=== PATIENT | female | born 1945 | race Caucasian/White ===

== ENCOUNTER → 2017-12-02 08:06 | Outpatient (CLI) | payer MEDICARE, BC | END | disposition home or self-care (01) | LOC: D.US 11-29 08:30 | DX: R10.9 Unspecified abdominal pain (principal) ==

== ENCOUNTER → 2018-01-22 08:57 | Outpatient (CLI) | payer MEDICARE, BC | END | disposition home or self-care (01) | LOC: D.CT 08:57 | DX: R19.7 Diarrhea, unspecified (principal) ==

== ENCOUNTER → 2018-07-10 12:28 | Outpatient (CLI) | payer MEDICARE, BC | END | disposition home or self-care (01) | LOC: D.NM 12:28 | DX: R10.9 Unspecified abdominal pain (principal) ==

== ENCOUNTER → 2018-07-14 08:16 | Outpatient (CLI) | payer MEDICARE, BC ==
[2018-07-14 09:23] LABS: ALBUMIN 3.6 g/dL (3.4-5.0); BILIRUBIN - DIRECT 0.09 mg/dL (0.00-0.30); BILIRUBIN - INDIRECT 0.29 mg/dL (0.00-1.00); BILIRUBIN - TOTAL 0.38 mg/dL (0.2-1.3); PROTEIN - SERUM 7.3 g/dL (6.4-8.2)
[2018-07-15 09:17] LABS: HEPATITIS C ANTIBODY <0.1 (0.0-0.9)
== END | disposition home or self-care (01) ==
LOC: D.US 08:16
PROVIDERS: Internal Medicine Gastroenterology
DX: K76.0 Fatty (change of) liver, not elsewhere classified (principal); R10.9 Unspecified abdominal pain

== ENCOUNTER → 2018-07-18 08:27 | Outpatient (CLI) | payer MEDICARE, BC | END | disposition home or self-care (01) | LOC: D.CT 08:27 | DX: R10.9 Unspecified abdominal pain (principal) ==

== ENCOUNTER 2018-08-11 06:17 | Day surgery (SDC) | payer MEDICARE, BC ==
[2018-08-08 09:04] LABS: HEMATOCRIT 37.5 % (36.0-48.0); HEMOGLOBIN 12.4 g/dL (12-16); MCH 31.6 pg (26.0-34.0); MCHC 33.1 g/dL (31.0-37.0); MCV 95.4 fL (80.0-100.0); MEAN PLATELET VOLUME 8.9 fL (7.4-10.4); RBC 3.93 10x6/uL (4.00-5.40); RDW 13.4 % (11.5-14.5); WBC 5.6 10x3/uL (4.8-10.8)
[~2018-08-11] VITALS: Ht 162.6 cm; Wt 74.4 kg
[~2018-08-11 06:17] MED LIST: CRESTOR5 MG PO; LISINOPRIL10 MG PO; OMEPRAZOLE40 MG PO; SINGULAIR10 MG PO
[2018-08-11] MEDS ORDERED: BAYER CHEWABLE81 MG PO (06:23)
[2018-08-11 06:43] VITALS: BP 137/63; Ht 162.6 cm; Wt 74.4 kg
[2018-08-11] MEDS ORDERED: HYDROCODON-ACE1 EAC7 PO ×2 (08:58→18:45)
== END 2018-08-11 17:40 | disposition home or self-care (01) ==
LOC: D.OPS 06:17 → D.PAN 08:00 → D.OPS 10:45
PROVIDERS: Anesthesiology
DX: K82.8 Other specified diseases of gallbladder (principal); Z01.812 Encounter for preprocedural laboratory examination